=== PATIENT | female | born 1980 | race Caucasian/White ===

== ENCOUNTER → 2017-05-28 | Outpatient (CLI) | payer OTHER ==
[~2017-05-28] MED LIST: BARIATRIC MVI PO; DOCU-131 PO; IBUP-1222 PO; LEVO100T5 PO
[2017-05-28 09:33] LABS: HEMATOCRIT 39.9 % (34.6-47.8); HEMOGLOBIN 13.6 g/dL (11.7-16.4)
[2017-05-28 09:42] LABS: BLOOD UREA NITROGEN 9 mg/dL (7-18)
[2017-05-28 10:10] LABS: ASPARTATE AMINO TRANSFERASE 22 U/L (15-37); FERRITIN 78.2 ng/mL (8-252); TOTAL IRON BINDING CAPACITY 316 mcg/dL (250-450); TRANSFERRIN 242 mg/dL (200-360)
== END | disposition home or self-care (01) ==
LOC: STAR 08:26
PROVIDERS: ATTEND Thoracic Surgery (Cardiothoracic Vascular Surgery)
DX: Z01.818 Encounter for other preprocedural examination (principal); J84.10 Pulmonary fibrosis, unspecified; E55.9 Vitamin D deficiency, unspecified; E78.5 Hyperlipidemia, unspecified; R79.89 Other specified abnormal findings of blood chemistry
CPT/HCPCS: 36415; 71020; 80053; 80061; 82306; 82607; 82728; 82746; 83540; 83550; 83970; 84134; 84425; 84466; 85025; 93005

== ENCOUNTER 2017-06-13 06:35 | Inpatient (IN) | payer OTHER ==
[~2017-06-13] VITALS: Ht 170.2 cm; Wt 136.1 kg
[2017-06-13] MEDS ORDERED: MIDAZOLAM 1 MG/ML, 2ML ONE (06:40)
[2017-06-13] MEDS ORDERED: FENTANYL PF 100 MCG/2ML ONE ×4 (06:40→09:33)
[2017-06-13] MEDS ORDERED: PROPOFOL 10 MG/ML, 20ML ONE (06:44)
[2017-06-13] MEDS ORDERED: ROCURONIUM 10 MG/ML ONE (06:45)
[2017-06-13 06:52] LABS: HCG UR LOT HCG7030192
[2017-06-13] MEDS ORDERED: LIDOCAINE 1%, 2ML ONE (06:54)
[2017-06-13 07:05] LABS: HCG UR OBC PASS
[2017-06-13] MEDS ORDERED: CEFAZOLIN 1,000 MG ONE ×3 (07:17)
[2017-06-13] MEDS ORDERED: EPINEPHRINE 1 MG/ML, 1ML ONE (07:17)
[2017-06-13] MEDS ORDERED: BUPIVACAINE/PF 0.5% ONE (07:17)
[2017-06-13] MEDS ORDERED: NEOSTIGMINE 1 MG/ML, 10ML ONE (07:18)
[2017-06-13] MEDS ORDERED: GLYCOPYRROLATE 0.4 MG/2 ML, 2ML ONE (07:18)
[2017-06-13] MEDS ORDERED: SCOPOLAMINE 1MG PATCH TD ONE (07:22)
[2017-06-13] MEDS ORDERED: LACTATED RINGERS 1,000 ML IV SCH (07:25)
[2017-06-13 07:27] VITALS: BP 144/93
[2017-06-13] MEDS ORDERED: LIDOCAINE 1%, 2ML SQ PRN (07:30)
[2017-06-13] MEDS ORDERED: ONDANSETRON 2MG/ML, 2ML IVPush PRN (07:30)
[2017-06-13] MEDS ORDERED: LABETALOL 5MG/ML, 20ML IV PRN (07:30)
[2017-06-13] MEDS ORDERED: MEPERIDINE/PF 25MG/0.5ML IVPush PRN (07:30)
[2017-06-13] MEDS ORDERED: OXYcodone 5 MG/5 ML ORAL.SOL UDC PO PRN (07:30)
[2017-06-13] MEDS ORDERED: PROMETHAZINE 25 MG/ML, 1ML IV PRN (07:30)
[2017-06-13] MEDS ORDERED: hydrALAzine 20 MG/ML, 1ML IV PRN (07:30)
[2017-06-13] MEDS ORDERED: ACETAMINOPHEN 325 MG TABLET PO PRN (07:30)
[2017-06-13] MEDS ORDERED: HYDROmorphone 1 MG/ML, 1ML IV PRN (07:30)
[2017-06-13] MEDS ORDERED: SCOPOLAMINE 1MG PATCH TD SCH (07:30)
[2017-06-13] MEDS ORDERED: DEXAMETHASONE 4 MG/ML, 1ML ONE ×2 (07:40)
[2017-06-13] MEDS ORDERED: ONDANSETRON 2MG/ML, 2ML ONE ×2 (07:40→08:47)
[2017-06-13] MEDS: LACTATED RINGERS 1,000 ML IV SCH ×3 (08:43→21:43)
[2017-06-13] MEDS ORDERED: MEPERIDINE/PF 25MG/0.5ML ONE (08:52)
[2017-06-13] MEDS: FENTANYL PF 100 MCG/2ML IV PRN ×3 (08:58→09:34)
[2017-06-13] MEDS ORDERED: PROMETHAZINE 25 MG/ML, 1ML ONE (08:59)
[2017-06-13] MEDS ORDERED: PHENOL THROAT SPRAY BOTTLE MM PRN (09:00)
[2017-06-13] MEDS ORDERED: ENALAPRILAT 1.25 MG/ML, 2ML IV PRN (09:00)
[2017-06-13] MEDS ORDERED: LORazepam 2 MG/ML, 1ML IV PRN (09:00)
[2017-06-13] MEDS ORDERED: PROMETHAZINE 12.5 MG SUPP PR PRN (09:00)
[2017-06-13] MEDS ORDERED: hydrALAzine 20 MG/ML, 1ML IVPush PRN (09:00)
[2017-06-13] MEDS ORDERED: DIPHENHYDRAMINE 50 MG/ML, 1ML IV PRN (09:00)
[2017-06-13] MEDS ORDERED: METOCLOPRAMIDE 5 MG/ML, 2ML ONE (09:15)
[2017-06-13] MEDS ORDERED: METOCLOPRAMIDE 5 MG/ML, 2ML IVPush PRN (09:30)
[2017-06-13] MEDS ORDERED: DIPHENHYDRAMINE 50 MG/ML, 1ML IVPush PRN (09:30)
[2017-06-13] MEDS: LEVOTHYROXINE 100 MCG TABLET PO SCH (12:31)
[2017-06-13] MEDS: FAMOTIDINE 20 MG/2 ML IVPush SCH ×2 (12:37→22:01)
[2017-06-13] MEDS: morphine SULFATE 10 MG/ML, 1ML IVPush PRN ×2 (12:38→16:25)
[2017-06-13] MEDS: ONDANSETRON 2MG/ML, 2ML IVPush PRN ×2 (12:42→18:25)
[2017-06-13 13:45] VITALS: BP 119/72
[2017-06-13] MEDS: CEFAZOLIN 2,000 MG in DEXTROSE 5% 50 ML IV SCH (14:40)
[2017-06-13] MEDS ORDERED: CEFAZOLIN PMX 2GM/50ML 50 ML IV SCH (15:00)
[2017-06-13 20:00] VITALS: BP 118/59
[2017-06-13] MEDS: HYDROcodone/APAP 7.5-325MG/15ML UDC PO PRN (22:01)
[2017-06-14 00:17] VITALS: BP 106/66
[2017-06-14] MEDS: CEFAZOLIN 2,000 MG in DEXTROSE 5% 50 ML IV SCH ×2 (01:38→09:00)
[2017-06-14] MEDS: ONDANSETRON 2MG/ML, 2ML IVPush PRN ×3 (01:41→14:24)
[2017-06-14 02:47] VITALS: BP 126/72
[2017-06-14] MEDS: HYDROcodone/APAP 7.5-325MG/15ML UDC PO PRN ×3 (03:29→14:24)
[2017-06-14 05:41] LABS: HEMATOCRIT 36.9 % (34.6-47.8); HEMOGLOBIN 12.4 g/dL (11.7-16.4)
[2017-06-14 05:53] LABS: BLOOD UREA NITROGEN 7 mg/dL (7-18)
[2017-06-14 07:46] VITALS: BP 123/83
[2017-06-14] MEDS: LACTATED RINGERS 1,000 ML IV SCH (08:50)
[2017-06-14] MEDS: FAMOTIDINE 20 MG/2 ML IVPush SCH (08:50)
[2017-06-14] MEDS: LEVOTHYROXINE 100 MCG TABLET PO SCH (08:50)
[2017-06-14 13:29] VITALS: BP 116/79
== END 2017-06-14 18:00 | disposition home or self-care (01) | DRG 621 ==
LOC: ORIP 06:35 → EDSTATUS 07:30 → 4NOR 09:57
PROVIDERS: ADMIT Thoracic Surgery (Cardiothoracic Vascular Surgery); ATTEND Thoracic Surgery (Cardiothoracic Vascular Surgery)
PROC: 0DB64Z3 Excision of Stomach, Percutaneous Endoscopic Approach, Vertical (ICD-10-PCS; principal; 2017-06-13 07:30)
DX: E66.01 Morbid (severe) obesity due to excess calories (principal); F32.9 Major depressive disorder, single episode, unspecified; G47.00 Insomnia, unspecified; R32 Unspecified urinary incontinence; Z68.42 Body mass index [BMI] 45.0-49.9, adult
CPT/HCPCS: 36415; 80048; 81025; 82040; 85025; J0171; J0690; J1100; J2175; J2250; J2405; J2550; J2704; J2710; J3010; J3490; J2270; J2765; J7120; S0028